=== PATIENT | male | born 1970 | race Two or more races ===

== ENCOUNTER 2017-08-17 10:06 | Emergency (ER) | payer MEDICAID ==
[2017-08-17] MEDS ORDERED: Diphtheria,Pertussis(Acell),Tetanus Vaccine 0.5 ML SDV IM ONE (10:50)
--- NOTE | 2017-08-17 10:51 | EDM.PDOC ---
ED HPI GENERAL MEDICAL PROBLEM - General Chief Complaint: Upper Extremity Injury/Pain Stated Complaint: [id number] SOMETHING IN FINGER Time Seen by Provider: 08/17/17 10:46 Source of Information: Reports: Patient History Limitations: Reports: No Limitations - History of Present Illness INITIAL COMMENTS - FREE TEXT/NARRATIVE: 47 yo Male cut right 2nd finger on car metal 3 days ago Onset Date: 08/14/17 Onset Time: 12:00 Duration: Day(s): Location: Reports: Upper Extremity, Right (2nd finger) Quality: Reports: Ache Severity: Moderate Improves with: Reports: None Worsens with: Reports: None Context: Reports: Trauma Associated Symptoms: Reports: No Other Symptoms Right 2-Index finger Pain Score (Numeric/FACES): 8 - Related Data Allergies Allergy/AdvReac Type Severity Reaction Status Date / Time No Known Allergies Allergy Verified 08/17/17 10:15 Home Meds: Home Meds . [No Known Home Meds] 08/17/17 [History] Past Medical History - Infectious Disease History Infectious Disease History: Reports: Chicken Pox - Past Surgical History Musculoskeletal Surgical History: Reports: ORIF Social & Family History - Tobacco Use Smoking Status *Q: Current Every Day Smoker Years of Tobacco use: 30 Packs/Tins Daily: 1 Second Hand Smoke Exposure: Yes - Caffeine Use Caffeine Use: Reports: Coffee - Alcohol Use Days Per Week of Alcohol Use: 1 Number of Drinks Per Day: 6 Total Drinks Per Week: 6 - Recreational Drug Use Recreational Drug Use: No Review of Systems - Review of Systems Review Of Systems: See Below Constitutional: Reports: No Symptoms Eyes: Reports: No Symptoms Ears: Reports: No Symptoms Nose: Reports: No Symptoms Mouth/Throat: Reports: No Symptoms Respiratory: Reports: No Symptoms Cardiovascular: Reports: No Symptoms GI/Abdominal: Reports: No Symptoms Genitourinary: Reports: No Symptoms Musculoskeletal: Reports: Hand Pain (right hand 2nd finger) Skin: Reports: Erythema, Wound (right 2nd finger) Neurological: Reports: No Symptoms Psychiatric: Reports: No Symptoms ED EXAM, GENERAL - Physical Exam Exam: See Below Exam Limited By: No Limitations General Appearance: Alert, No Apparent Distress Eye Exam: Bilateral Eye: PERRL Ears: Normal External Exam Nose: Normal Inspection Throat/Mouth: Normal Inspection Head: Atraumatic Neck: Normal Inspection Respiratory/Chest: No Respiratory Distress, Lungs Clear Cardiovascular: Normal Peripheral Pulses, Regular Rate, Rhythm Peripheral Pulses: 2+: Radial (L), Radial (R) GI/Abdominal: Normal Bowel Sounds Back Exam: Normal Inspection Extremities: Other (right 2nd finger w/ cruted wound w/o drainage) Neurological: Alert, Oriented, CN II-XII Intact Psychiatric: Normal Affect Skin Exam: Erythema, Increased Warmth Lymphatic: No Adenopathy Course - Vital Signs Last Recorded V/S: Last Vital Signs Temp 37.1 C 08/17/17 10:15 Pulse 85 08/17/17 10:15 Resp 18 08/17/17 10:15 BP 136/104 H 08/17/17 10:15 Pulse Ox 98 08/17/17 10:15 - Orders/Labs/Meds Orders: Active Orders 24 hr Category Date Time Status Vaccines to be Administered [RC] PER UNIT ROUTINE Care 08/17/17 10:50 Active Bacitracin [Bacitracin Oint 1 GM] Med 08/17/17 11:56 Once 1 dose TOP ONETIME ONE Medication Orders Bacitracin (Bacitracin Oint 1 Gm) 1 dose TOP ONETIME ONE Stop: 08/17/17 11:57 Labs: Laboratory Tests 08/17/17 Range/Units 11:02 WBC 10.3 H (5.0-10.0) 10^3/uL RBC 4.36 L (4.6-6.2) 10^6/uL Hgb 13.6 L (14.0-18.0) g/dL Hct 39.9 L (40.0-54.0) % MCV 91.5 (80-100) fL MCH 31.2 (27.0-34.0) pg MCHC 34.1 (33.0-35.0) g/dL Plt Count 306 (150-450) 10^3/uL Neut % (Auto) 63.4 (42.2-75.2) % Lymph % (Auto) 22.8 (20.5-50.1) % [place] % (Auto) 11.6 H (2-8) % Eos % (Auto) 1.8 (1.0-3.0) % Baso % (Auto) 0.4 (0.0-1.0) % Meds: Medications Generic Name Dose Route Start Last Admin Trade Name Freq PRN Reason Stop Dose Admin Bacitracin 1 dose 08/17/17 11:56 Bacitracin Oint 1 Gm TOP 08/17/17 11:57 ONETIME ONE Discontinued Medications Generic Name Dose Route Start Last Admin Trade Name Dangelo PRN Reason Stop Dose Admin Diphtheria/Tetanus/Acell Pertussis 0.5 ml 08/17/17 10:50 08/17/17 11:52 Adacel IM 08/17/17 10:51 0.5 ml .ONCE ONE Administration Departure - Departure Time of Disposition: 11:56 Disposition: Home, Self-Care 01 Condition: Good Clinical Impression: Infected finger - Discharge Information Forms: ED Department Discharge Additional Instructions: Keep finger clean and dry For pain take Tylenol ES 500mg QID as needed Take the Oral Antibiotic: KEFLEX 500mg QID # 40 Apply Antibiotic Ointment to finger BID # 44g F/U w/ PCP for re-evaluation on Saturday08/19/2017 - My Orders Last 24 Hours: My Active Orders 08/17/17 10:50 Vaccines to be Administered [RC] PER UNIT ROUTINE 08/17/17 11:56 Bacitracin [Bacitracin Oint 1 GM] 1 dose TOP ONETIME ONE - Assessment/Plan Last 24 Hours: My Active Orders 08/17/17 10:50 Vaccines to be Administered [RC] PER UNIT ROUTINE 08/17/17 11:56 Bacitracin [Bacitracin Oint 1 GM] 1 dose TOP ONETIME ONE
[2017-08-17] MEDS ORDERED: Bacitracin Oint 1 GM U/D Packet TOP ONE (11:56)
== END 2017-08-17 12:06 | disposition home or self-care (01) ==
LOC: DL.ED 10:06
DX: L08.9 Local infection of the skin and subcutaneous tissue, unspecified (principal); S61.210A Laceration without foreign body of right index finger without damage to nail, initial encounter; F17.210 Nicotine dependence, cigarettes, uncomplicated; Z23 Encounter for immunization; W26.9XXA Contact with unspecified sharp object(s), initial encounter
CPT/HCPCS: 36415; 73120-RT; 85025; 90715; 96372; 99283